=== PATIENT | female | born 1940 | race Caucasian/White ===

== ENCOUNTER 2022-11-07 07:43 | Day surgery (SDC) | payer OTHER ==
[~2022-11-07] VITALS: Ht 154.9 cm; Wt 49.9 kg
[2022-11-07] MEDS ORDERED: INDOMETHACIN 50 MG SUPP.RECT RC ONE ×2 (07:45→08:00)
[2022-11-07] MEDS ORDERED: SIMETHICONE 40 MG/0.6 ML ML ONE (10:52)
[2022-11-07] MEDS ORDERED: SUCCINYLCHOLINE CHLORIDE 20 MG/ML(QUELICIN) ONE (11:41)
[2022-11-07] MEDS ORDERED: DEXAMETHASONE SOD PHOSPHATE 4 MG/ML VIAL ONE (11:41)
[2022-11-07] MEDS ORDERED: LR 1,000 ML IV.SOLN IV ONE (11:41)
[2022-11-07] MEDS ORDERED: PROPOFOL 200MG/ 20ML VIAL (DIPRIVAN) IV ONE (11:41)
[2022-11-07] MEDS ORDERED: DESFLURANE 15 MIN GAS INH ONE (11:41)
[2022-11-07] MEDS ORDERED: fentaNYL CITRATE/PF 100 MCG/2 ML AMP ONE (11:41)
[2022-11-07] MEDS ORDERED: ONDANSETRON HCL 4 MG/2 ML VIAL ONE (11:41)
[2022-11-07 14:58] VITALS: BP_SYST 169
== END 2022-11-07 14:16 | disposition home or self-care (01) ==
LOC: SDS 07:43 → SMU 07:45 → SDS 14:16
PROVIDERS: ATTEND Internal Medicine Gastroenterology
DX: K80.50 Calculus of bile duct without cholangitis or cholecystitis without obstruction (principal); K21.9 Gastro-esophageal reflux disease without esophagitis; I12.9 Hypertensive chronic kidney disease with stage 1 through stage 4 chronic kidney disease, or unspecified chronic kidney disease; N18.9 Chronic kidney disease, unspecified; E11.22 Type 2 diabetes mellitus with diabetic chronic kidney disease; F32.A Depression, unspecified; M81.0 Age-related osteoporosis without current pathological fracture; Z79.899 Other long term (current) drug therapy
CPT/HCPCS: 43264; 43275; 82962; 74328; J1100; J2405; J2704; J0330; J3010; Q9967; J7120; 74330-TC